=== PATIENT | female | born 1985 | race Two or more races ===

== ENCOUNTER 2016-12-16 20:03 | Emergency (ER) | payer BC ==
[~2016-12-16] VITALS: Ht 162.6 cm; Wt 68.0 kg
--- NOTE | 2016-12-16 20:53 | Emergency Room Report ---
History of Present Illness General Chief Complaint: Lower Extremity Injury Source: Patient Present Illness HPI Patient presents emergency department today status post fall. Patient states that she was moving furniture and had a mechanical fall onto her right side. She's complaining of right ankle pain and swelling as well as right knee pain. She has difficulty with bearing weight. She denies any back pain headache neck pain or chest pain. No loss consciousness was noted. No other complaints are noted. Symptoms noted to be moderate to severe.No other modifying factors. No other associated signs and symptoms. No other complaints were noted. Allergies: Coded Allergies: No Known Allergies (Unverified , 12/16/16) Patient History Past Medical History: none Past Surgical History: none Pertinent Family History: none Social History: Denies: smoking, alcohol use, drug use Last Menstrual Period: 11/24/16 Now: No Reviewed Nursing Documentation: PMH: Agreed, PSxH: Agreed Nursing Documentation-PMH Past Medical History: No Stated History Review of Systems All Other Systems: negative except mentioned in HPI Physical Exam Vital Signs Date Time Temp Pulse Resp B/P (MAP) Pulse Ox O2 Delivery O2 Flow Rate FiO2 12/16/16 20:12 99.0 88 16 126/86 98 Room Air Sp02 EP Interpretation: reviewed, normal General Appearance: normal inspection, well appearing, no apparent distress, alert Head: atraumatic Eyes: bilateral eye normal inspection ENT: normal ENT inspection, hearing grossly normal, normal voice Neck: normal inspection, full range of motion, supple, no bony tend Respiratory: normal inspection, lungs clear, normal breath sounds, no respiratory distress, no retraction, no wheezing Cardiovascular #1: regular rate, rhythm, no edema Gastrointestinal: normal inspection, normal bowel sounds, non tender, soft, no guarding, no hernia Genitourinary: no CVA tenderness Musculoskeletal: swelling - right ankle swellg, tender - right knee, right ankle, Neurologic: normal inspection, alert, responsive, speech normal Psychiatric: normal inspection, judgement/insight normal, mood/affect normal Skin: normal inspection, normal color, no rash Procedures Splinting Splinting : Consent: Verbal Hand-Made Type: plaster Splint: poserior short Pre-Proc Neuro Vasc Exam: normal Post-Proc Neuro Vasc Exam: normal Patient Tolerated: Well Complications: None Medical Decision Making Diagnostic Impression: Primary Impression: Ankle fracture, right Qualified Codes: S82.891A - Other fracture of right lower leg, initial encounter for closed fracture ER Course Patient presents emergency department today complaining of ankle pain. Differential considerations include fracture dislocation versus strain. Given patient's presentation I felt that radiographic study was indicated. X-rays were obtained and show evidence of fracture. Therefore patient was placed in a splint. Patient is advised a follow with orthopedics. Patient is given pain medications.Patient is advised to follow up with primary doctor in 2-3 days and return the emergency room for any worsening symptoms and as needed. Patient also had knee pain x-rays are obtained which were negative Other X-Ray Diagnostic Results Other X-Ray Diagnostic Results #1: X-Ray ordered: right ankle # of Views/Limited Vs Complete: 3 View Indication: Pain EP Interpretation: Yes Interpretation: no dislocation, other - right fibular fracture, no dislocation Electronically Signed by: Electronically signed by Geovanny Martini MD Other X-Ray Diagnostic Results #2: X-Ray ordered: right knee x-ray # of Views/Limited Vs Complete: 3 View Indication: Pain EP Interpretation: Yes Interpretation: no dislocation, no soft tissue swelling, no fractures Impression: No acute disease Electronically Signed by: Electronically signed by Geovanny Martini MD Last Vital Signs Date Time Temp Pulse Resp B/P (MAP) Pulse Ox O2 Delivery O2 Flow Rate FiO2 12/16/16 20:12 99.0 88 16 126/86 98 Room Air Status: improved Disposition: HOME, SELF-CARE Condition: Stable Scripts Ibuprofen* (MOTRIN*) 600 Mg Tablet 600 MG ORAL Q8H Y for For Pain, #30 TAB 0 Refills Prov: GEOVANNY MARTINI M.D. 12/16/16 Hydrocodone Bit/Acetaminophen 5-325* (NORCO 5-325*) 1 Each Tablet 1 TAB ORAL Q6H Y for For Pain, #20 TAB 0 Refills Prov: GEOVANNY MARTINI M.D. 12/16/16 GEOVANNY MARTINI M.D. Dec 16, 2016 20:53
[2016-12-16] MEDS ORDERED: IBUPROFEN600 MG ORAL (21:13)
[2016-12-16] MEDS ORDERED: NORCO 5-325 TA1 EACH ORAL (21:13)
[2016-12-16 21:49] VITALS: BP 126/86
--- NOTE | 2016-12-17 10:47 | Diagnostic Imaging Report ---
Indications: TRAUMA, knee pain Technique: Three views of the right knee Comparison: None Findings: No acute fractures. No dislocations. Joint spaces are preserved. No radiopaque foreign body. Normal mineralization. No suprapatellar effusion Impression: No acute process This agrees with the preliminary interpretation provided by the emergency room physician
--- NOTE | 2016-12-17 10:48 | Diagnostic Imaging Report ---
Indication: TRAUMA, pain Technique: 3 views of the right ankle Comparison: none Findings: There is an oblique fracture of the distal fibula. No acute tibial fracture demonstrated. No other fractures. No dislocations. There is lateral soft tissue swelling. The joint spaces are preserved Impression: Positive for distal fibular fracture This agrees with the preliminary interpretation provided by the emergency room physician
== END 2016-12-16 21:49 | disposition home or self-care (01) ==
LOC: EMR 20:27
DX: S82.891A Other fracture of right lower leg, initial encounter for closed fracture (principal); W19.XXXA Unspecified fall, initial encounter; Y93.9 Activity, unspecified; Y99.9 Unspecified external cause status; M25.561 Pain in right knee; M25.571 Pain in right ankle and joints of right foot
CPT/HCPCS: 29515; 99284